=== PATIENT | female | born 1950 | race Asian ===

== ENCOUNTER 2017-08-01 16:53 | Emergency (ER) | payer OTHER ==
[~2017-08-01] VITALS: Ht 162.6 cm; Wt 45.1 kg
[2017-08-01 17:08] VITALS: BP 140/65; PULSE 63; RESP 16; TEMP 98.5; O2SAT 100
[2017-08-01 18:46] VITALS: BP 162/61; PULSE 66; RESP 16; O2SAT 98
[2017-08-01 19:00] VITALS: BP 133/63; PULSE 70; RESP 14; O2SAT 100
--- NOTE | 2017-08-01 19:40 | PD ---
HPI Chief Complaint: Dizziness Time Seen by Provider: 19:17 Travel History International Travel<30 days: No Contact w/Intl Traveler<30days: No Traveled to known affect area: No History of Present Illness HPI 66-year-old female complains of dizziness with nausea vomiting. Patient states the symptoms started this morning. Patient states the dizziness is with head movement. Patient does not have any dyspnea at rest. Patient denies any headache. Patient denies any visual change. Patient denies any neck pain. Patient denies any chest pain or shortness of breath. Patient denies abdominal pain. Patient denies any focal weakness or numbness of extremity. Patient has history of vertigo in the past. [facility] Past Medical History Medical History: Denies Significant Hx Diminished Hearing: No Immunizations Current: Yes Tetanus Vaccination: Unknown Influenza Vaccination: No ?: Not Past Surgical History Section: Yes Social History Alcohol Use: No Tobacco Use: No Substance Use: No Allergies-Medications (Allergen,Severity, Reaction): Coded Allergies: No Known Allergies (Verified Allergy, Unknown, 08/01/17) Reported Meds & Prescriptions Reported Meds & Active Scripts Active No Active Prescriptions or Reported Medications Review of Systems General / Constitutional: No: Fever Eyes: No: Visual changes HENT: Positive: Vertigo, Lightheadedness, No: Headaches Cardiovascular: No: Chest Pain or Discomfort Respiratory: No: Shortness of Breath Gastrointestinal: Positive: Nausea, Vomiting, No: Abdominal Pain Genitourinary: No: Dysuria Musculoskeletal: No: Pain Skin: No Rash Neurologic: No: Weakness Psychiatric: No: Depression Endocrine: No: Polydipsia Hematologic/Lymphatic: No: Easy Bruising Physical Exam Narrative GENERAL: Well-nourished, well-developed patient. SKIN: Focused skin assessment warm/dry. HEAD: Normocephalic. EYES: No scleral icterus. No injection or drainage. Pupils 2 mm equal reactive. NECK: Supple, trachea midline. No JVD or lymphadenopathy. CARDIOVASCULAR: Regular rate and rhythm without murmurs, gallops, or rubs. RESPIRATORY: Breath sounds equal bilaterally. No accessory muscle use. GASTROINTESTINAL: Abdomen soft, non-tender, nondistended. MUSCULOSKELETAL: No cyanosis, or edema. BACK: Nontender without obvious deformity. No CVA tenderness. Neurologic exam: Patient's awake and alert oriented 3. No obvious focal neurological deficit. Data Data Last Documented VS Vital Signs Date Time Temp Pulse Resp B/P (MAP) Pulse Ox O2 Delivery O2 Flow Rate FiO2 08/01/17 20:00 70 14 100 Room Air 08/01/17 19:00 08/01/17 17:08 98.5 Orders Orders Complete Blood Count With Diff (08/01/17 19:34) Basic Metabolic Panel (Bmp) (08/01/17 19:34) Urinalysis - C+S If Indicated (08/01/17 19:34) Iv Access Insert/Monitor (08/01/17:34) Ecg Monitoring (08/01/17:34) Oximetry (08/01/17 19:34) Sodium Chlor 0.9% 1000 Ml Inj (Ns 1000 M (08/01/17 19:45) Ondansetron Inj (Zofran Inj) (08/01/17 19:45) Meclizine (Antivert) (08/01/17 19:45) Labs Laboratory Tests Test 08/01/17 18:55 White Blood Count 8.8 TH/MM3 Red Blood Count 5.28 MIL/MM3 Hemoglobin 12.9 GM/DL Hematocrit 40.5 % Mean Corpuscular Volume 76.7 FL Mean Corpuscular Hemoglobin 24.5 PG Mean Corpuscular Hemoglobin Concent 32.0 % Red Cell Distribution Width 13.3 % Platelet Count 173 TH/MM3 Mean Platelet Volume 11.8 FL Neutrophils (%) (Auto) 90.4 % Lymphocytes (%) (Auto) 6.2 % Monocytes (%) (Auto) 3.2 % Eosinophils (%) (Auto) 0.1 % Basophils (%) (Auto) 0.1 % Neutrophils # (Auto) 8.0 TH/MM3 Lymphocytes # (Auto) 0.5 TH/MM3 Monocytes # (Auto) 0.3 TH/MM3 Eosinophils # (Auto) 0.0 TH/MM3 Basophils # (Auto) 0.0 TH/MM3 CBC Comment AUTO DIFF Blood Urea Nitrogen 12 MG/DL Creatinine 0.72 MG/DL Random Glucose 127 MG/DL Calcium Level 9.1 MG/DL Sodium Level 134 MEQ/L Potassium Level 4.2 MEQ/L Chloride Level 97 MEQ/L Carbon Dioxide Level 28.1 MEQ/L Anion Gap 9 MEQ/L Estimat Glomerular Filtration Rate 81 ML/MIN MDM Medical Decision Making Medical Screen Exam Complete: Yes Emergency Medical Condition: Yes Interpretation(s) 21:05 PM. CBC within normal limit. Hemoglobin 12.9. MCV 76.7. Sodium 134. Differential Diagnosis Differential diagnosis including vertigo, electrolyte imbalance, dehydration, cephalgia. Narrative Course 66-year-old female with dizziness with head movement and nausea vomiting since this morning. Normal saline solution 1 L IV bolus. Zofran 4 mg IV. Meclizine 25 mg by mouth. Diagnosis Primary Impression: Acute onset of severe vertigo Patient Instructions: General Instructions Additional Instructions: Cozean as needed for dizziness. Zofran is negative for nausea vomiting. Follow -up with personal physician. Follow-up with ENT for vertigo clinic if persistent problem. Return if persistent problem or worse. Med/Other Pt SpecificInfo: Prescription(s) given Scripts Ondansetron Odt (Zofran Odt) 4 Mg Tab 4 MG SL Q6HR Y for Nausea/Vomiting, #10 TAB 0 Refills Prov: Valentín Link MD 08/01/17 Meclizine (Meclizine) 25 Mg Tab 25 MG PO TID Y for VERTIGO, #21 TAB 0 Refills Prov: Valentín Link MD 08/01/17 Disposition: 01 DISCHARGE HOME Condition: Stable Valentín Link MD Aug 01, 2017 19:40
[2017-08-01] MEDS ORDERED: MECLIZINE HCL 25 MG TAB PO ONE (19:45)
[2017-08-01] MEDS ORDERED: ONDANSETRON HCL 4 MG/2 ML VIAL IV PUSH ONE (19:45)
[2017-08-01] MEDS ORDERED: SODIUM CHLOR 0.9% 1000 ML INJ 1,000 ML IV ONE (19:45)
[2017-08-01 20:24] LABS: BASOPHIL % 0.1 % (0.0-2.0); EOSINOPHIL % 0.1 % (0.0-4.0); HEMATOCRIT 40.5 % (35.0-46.0); LYMPH % 6.2 % (9.0-44.0); LYMPHOCYTE # 0.5 TH/MM3 (1.0-4.8); MEAN CELL VOLUME 76.7 FL (80.0-100.0); MEAN CORPUSCULAR HEMOGLOBIN 24.5 PG (27.0-34.0); MONO % 3.2 % (0.0-8.0); NEUT % 90.4 % (16.0-70.0); PLATELET COUNT 173 TH/MM3 (150-450); RED BLOOD COUNT 5.28 MIL/MM3 (4.00-5.30); RED CELL DISTRIBUTION WIDTH 13.3 % (11.6-17.2); WHITE BLOOD COUNT 8.8 TH/MM3 (4.0-11.0)
[2017-08-01 20:27] LABS: POTASSIUM 4.2 MEQ/L (3.5-5.1)
[2017-08-01 20:30] LABS: BICARBONATE 28.1 MEQ/L (21.0-32.0)
[2017-08-01 20:40] LABS: HEMO FLAGS AUTO DIFF
[2017-08-01] MEDS ORDERED: ZOFR4TAB3 SL (21:09)
[2017-08-01] MEDS ORDERED: MECL-62 PO (21:09)
[2017-08-01 21:15] VITALS: BP 144/70; PULSE 79; RESP 14; O2SAT 100
[2017-08-01 22:02] LABS: PLATELET ESTIMATE SMEAR NORMAL (NORMAL); PLATELET MORPHOLOGY NORMAL (NORMAL); SCAN/DIFF AUTO DIFF CONFIRMED
== END 2017-08-01 21:42 | disposition home or self-care (01) ==
LOC: PHED 16:53
DX: R42 Dizziness and giddiness (principal); R11.2 Nausea with vomiting, unspecified
CPT/HCPCS: 80048; 85025; 96361; 96374; 99284; J2405; J7030